=== PATIENT | female | born 1995 ===

== ENCOUNTER 2017-12-23 17:05 | Emergency (ER) | payer OTHER ==
[2017-12-23 17:15] VITALS: RESP 20; TEMP 98
--- NOTE | 2017-12-23 18:10 | C.PDOC ---
History Of Present Illness <Danilo Zuñiga - Last Filed: 12/23/17 21:06> <Barbie Dimas - Last Filed: 12/23/17 21:20> Patient is a 22 year old female with past medical history of kidney stones, presents to the ED s/p appointment in the clinic with complaints of being 10 weeks with no heart beat. Patient had her first appointment with PMD in the [facility] at [facility], where they performed a doppler exam. The heart beat was not heard at the time, however, it may be because its too early in the or girth. It was explained to the patient that she needed to follow up with an OBGYN for further testing. Patient was scheduled for an appointment with the OBGYN in the clinic on February 12 with the cigarette catcher; per the patient, the cigarette catcher also encouraged her to go to the ED. The patient came to the ER with concerns that her baby may not have a heart beat. Patient admits to having occasional nausea, vomiting, and cramping, but was told that was normal in . Patient denies having vaginal bleeding, abdominal pain , fevers, chest pain, headaches, and trauma. PMD: [facility] at [facility] PMHx: Kidney stones SurgHx: Cholecystectomy 2008; D&C 2009 FamHx: DM; Mother- Ovarian ca; Grandmother- Breast Ca SocHx: denies tobacco, alcohol and drug use; former 1/4ppd x5 years; lives with tyree in [place]; works at [employer]. Allergies: NKDA Medications: (Barbie Dimas) <Danilo Zuñiga - Last Filed: 12/23/17 21:06> History Per: Patient History/Exam Limitations: no limitations Severity: None Reports Recent Trauma: Denies Reports Recently: Seen In ED, Treated By A Physician Additional History Per: Patient, Family (Fiance at bedside) <Barbie Dimas - Last Filed: 12/23/17 21:20> Time Seen by Provider: 12/23/17 17:30 Chief Complaint (Nursing): Medical Clearance Past Medical History - Medical History PMH: Gall Bladder Disease, Kidney Stones Surgical History: Cholecystectomy Family History: States: Diabetes Other Family History: Mother- ovarian cancer; grandmother-breast cancer - Social History Hx Tobacco Use: Yes (former 1/4ppd [id number].) Hx Alcohol Use: No Hx Substance Use: No - Immunization History Hx Influenza Vaccination: No Hx Pneumococcal Vaccination: No <Barbie Dimas - Last Filed: 12/23/17 21:20> Vital Signs: Last Vital Signs Temp 98 F 12/23/17 17:11 Pulse 90 12/23/17 17:11 Resp 20 12/23/17 17:11 BP 115/79 12/23/17 17:11 Pulse Ox 97 12/23/17 18:50 - [facility] Procedures OTHER SKIN & SUBQ I D (06/28/14) Review Of Systems Constitutional: Negative for: Fever, Chills, Weakness Cardiovascular: Negative for: Chest Pain, Palpitations, Edema, Light Headedness Respiratory: Negative for: Cough, Shortness of Breath Gastrointestinal: Negative for: Nausea, Vomiting, Abdominal Pain, Diarrhea, Constipation Genitourinary: Negative for: Dysuria Neurological: Negative for: Dizziness <Barbie Dimas - Last Filed: 12/23/17 21:20> Physical Exam - Physical Exam Appears: No Acute Distress Skin: Normal Color, Warm, Dry Head: Atraumatic, Normacephalic Eye(s): bilateral: Normal Inspection Cardiovascular: Rhythm Regular, No Edema, No Murmur Respiratory: Normal Breath Sounds, No Accessory Muscle Use, No Rales, No Rhonchi , No Stridor, No Wheezing Gastrointestinal/Abdominal: Normal Exam, Bowel Sounds, Soft, No Tenderness, No Distention Extremity: No Tenderness, No Pedal Edema, No Swelling Extremity: Bilateral: Atraumatic, No Pedal Edema, Normal Color And Temperature Pulses: Left Dorsalis Pedis: Normal, Right Dorsalis Pedis: Normal Neurological/Psych: Oriented x3, Normal Speech <Barbie Dimas - Last Filed: 12/23/17 21:20> ED Course And Treatment - Laboratory Results Result Diagrams: 12/23/17 18:19 Lab Interpretation: Normal (normally elevated QHCG) Pulse Ox Interpretation: Normal Reevaluation Time: 21:06 Reassessment Condition: Improved <Danilo Zuñiga - Last Filed: 12/23/17 21:06> - Laboratory Results Result Diagrams: 12/23/17 18:19 O2 Sat by Pulse Oximetry: 97 <Barbie Dimas - Last Filed: 12/23/17 21:20> Medical Decision Making <Danilo Zuñiga - Last Filed: 12/23/17 21:06> <Barbie Dimas - Last Filed: 12/23/17 21:20> Medical Decision Making: normal IUP 10W1D probably simply unable to hear FHT in Clinic today pt reassured and US results given (Danilo Zuñiga) Ordered: - Labs: CBC, UA, Beta hCG - Transvaginal US Discussed outpatient follow up and encouraged patient to scheduled appointment with OBGYN this week. (Barbie Dimas) Disposition Doctor Will See Patient In The: Office Counseled Patient/Family Regarding: Studies Performed, Diagnosis - Disposition Disposition Time: 21:13 <Danilo Zuñiga - Last Filed: 12/23/17 21:06> <Barbie Dimas - Last Filed: 12/23/17 21:20> - Disposition Referrals: [facility] Doming[facility] [Outside] [facility] [Outside] [facility] [Outside] Additional Instructions: normal @ 10W1D Blood Type A+ follow-up in our outpatient OB clinic- usually 12 week checkup Continue daily vitamin Instructions: - The Third Month Forms: [employer] (Bermudian) - Clinical Impression Clinical Impression:
[2017-12-23 18:22] LABS: BASO % 0.3 % (0.0-2.0); EOS # 0.2 K/uL (0.0-0.7); EOS % 1.4 % (0.0-4.0); HEMOGLOBIN 13.4 g/dL (11.0-16.0); LYMPH # 2.8 K/uL (1.0-4.3); LYMPH % 24.8 % (20.0-40.0); MEAN CELL VOLUME 87.3 fL (81.0-99.0); MEAN CORPUSCULAR HEMOGLOBIN 30.2 pg (27.0-31.0); MEAN CORPUSCULAR HGB CONC 34.6 g/dL (33.0-37.0); MEAN PLATELET VOLUME 8.8 fL (7.2-11.7); MONO # 0.6 K/uL (0.0-0.8); MONO % 5.6 % (0.0-10.0); NEUT # 7.5 K/uL (1.8-7.0); NEUT % 67.9 % (50.0-75.0); NRBC % 0.1 % (0.0-2.0); RBC 4.42 Mil/uL (3.80-5.20); RED CELL DISTRIBUTION WIDTH 12.4 % (11.5-14.5); WHITE BLOOD COUNT 11.1 K/uL (4.8-10.8)
[2017-12-23 18:36] LABS: SQUAMOUS EPITHIAL 15 /hpf (0-5); URINE BACTERIA RARE (<OCC); URINE BILIRUBIN NEGATIVE (NEGATIVE); URINE BLOOD 1+ (NEGATIVE); URINE CLARITY Hazy (Clear); URINE COLOR Yellow (YELLOW); URINE GLUCOSE (UA) NORMAL (Normal); URINE LEUKOCYTE ESTERASE NEG Leu/uL (Negative); URINE NITRATE NEGATIVE (NEGATIVE); URINE PROTEIN NEGATIVE (NEGATIVE); URINE UROBILINOGEN NORMAL mg/dL (0.2-1.0)
--- NOTE | 2017-12-23 21:03 | US ---
EXAM: US First Trimester, Transabdominal EXAM DATE/TIME: 12/23/2017 6:02 PM CLINICAL HISTORY: 22 years old, female; Screening exam; Other: Check for viable ; ; Additional info: Examine for viable TECHNIQUE: Real-time transabdominal obstetrical ultrasound of the maternal pelvis and a first trimester with image documentation. COMPARISON: No relevant prior studies available. FINDINGS: Uterus: Measures 12.9 x 4.9 x 8.6 cm. Single intrauterine gestation identified. pole and yolk sac are seen. Early placenta is seen. Estimated gestational age is 10 weeks, 1 day, based on the crown rump length. Estimated delivery date is 07/20/2018. heart motion visualized, at 154 beats per minute. Note that the anatomy, amniotic fluid volume, and placental position cannot be evaluated at this early gestational age. Cervix measures 3.2 cm in length, and appears closed. Right ovary: Within normal limits in appearance. Measures 2.2 x 1.9 x 1.6 cm. Flow seen in the right ovary on color and Doppler imaging, with no evidence of torsion. Left ovary: Within normal limits in appearance. Measures 2.9 x 2.1 x 2.5 cm. Flow seen in the left ovary on color and Doppler imaging, with no evidence of torsion. Cul de sac: No free fluid. IMPRESSION: 10 week, 1 day intrauterine with heart motion. No acute abnormality identified. See above for remaining findings.
[2017-12-23 21:40] VITALS: BP 136/80; PULSE 63; O2SAT 100
== END 2017-12-23 21:38 | disposition home or self-care (01) ==
LOC: C.ER 17:05
DX: O26.91 Pregnancy related conditions, unspecified, first trimester (principal); Z3A.10 10 weeks gestation of pregnancy